=== PATIENT | female | born 2000 | race Caucasian/White ===

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

== ENCOUNTER 2018-01-07 07:08 | Inpatient (IN) | payer BC ==
[~2018-01-07] VITALS: Ht 170.2 cm; Wt 81.6 kg
[2018-01-07 07:10] VITALS: BP_SYST 93
[2018-01-07] MEDS ORDERED: NACL 0.9% 1,000 ML IV ONE (07:15)
[2018-01-07] MEDS ORDERED: PANTOPRAZOLE SODIUM 40 MG/VIAL (PROTONIX) IVP ONE (07:15)
[2018-01-07] MEDS ORDERED: ONDANSETRON HCL 4 MG/2 ML VIAL IVP ONE ×2 (07:15→10:00)
[2018-01-07 07:53] LABS: BASOPHILS % (AUTO) 0.4 % (0.0-2.0); EOSINOPHILS % (AUTO) 0.4 % (0.0-4.0); HEMOGLOBIN 12.3 g/dL (12.0-16.0); LYMPHOCYTES # (AUTO) 0.5 K/uL (1.0-5.5); LYMPHOCYTES % (AUTO) 9.5 % (20.5-51.5); MEAN CORPUSCULAR HEMOGLOBIN 31 pg (27-31); MEAN CORPUSCULAR HGB CONC 34 % (32-36); MEAN CORPUSCULAR VOLUME 90 fL (79.0-98.0); MONOCYTES # (AUTO) 0.4 K/uL (0.0-1.0); MONOCYTES % (AUTO) 6.3 % (1.7-9.3); NEUTROPHILS # (AUTO) 4.8 K/uL (1.8-7.7); NEUTROPHILS % (AUTO) 83.4 % (40.0-70.0); PLATELET COUNT (AUTO) 136 K/uL (130-430); RED BLOOD CELL COUNT(AUTO) 4.02 MIL/uL (4.2-6.2); RED CELL DISTRIBUTION WIDTH 11.2 % (9.0-15.0); WHITE BLOOD COUNT (AUTO) 5.7 K/uL (4.5-11.0)
[2018-01-07 08:06] LABS: CALCIUM 8.3 mg/dL (8.4-11.0); CREATININE 0.39 mg/dL (0.55-1.30); POTASSIUM 3.1 mmol/L (3.5-5.1)
[2018-01-07 08:31] LABS: ALBUMIN 2.5 g/dL (3.4-4.8); TOTAL BILIRUBIN 0.5 mg/dL (0.0-1.0)
[2018-01-07 09:40] LABS: BILIRUBIN,URINE NEGATIVE (NEGATIVE); BLOOD, URINE NEGATIVE (NEGATIVE); CLARITY/URINE CLEAR (CLEAR); COLOR,URINE YELLOW (YELLOW); GLUCOSE,URINE NEGATIVE (NEGATIVE); KETONES,URINE TRACE (NEGATIVE); LEUKOCYTE ESTERASE ,URINE NEGATIVE (NEGATIVE); NITRITE, URINE NEGATIVE (NEGATIVE); PROTEIN URINE NEGATIVE (NEGATIVE); UROBILINOGEN,URINE 0.2 (0.2-1.0)
[2018-01-07] MEDS ORDERED: PREN-89 PO (09:45)
[2018-01-07] MEDS ORDERED: LEVO50TA77 PO (09:45)
[2018-01-07] MEDS ORDERED: MAGN400T10 PO (09:45)
[2018-01-07] MEDS ORDERED: L.RH1CAP PO (09:45)
[2018-01-07] MEDS ORDERED: PYRI100T2 PO (09:45)
[2018-01-07] MEDS ORDERED: cefTRIAXone 1 GM IVPB PREMIX 50 ML IV ONE (10:00)
[2018-01-07] MEDS ORDERED: MAG-AL HYDROX/SIMETH 30 ML UDC PO ONE (10:00)
[2018-01-07] MEDS ORDERED: ONDANSETRON 4 MG ODT TAB PO ONE (15:00)
[2018-01-07] MEDS: D5/0.45 NS 1,000 ML IV SCH (15:50)
[2018-01-07 16:00] VITALS: BP_SYST 126
[2018-01-07] MEDS: BETAMET ACET/BETAMET NA PH 30 MG/5 ML VIAL IM SCH (16:00)
[2018-01-07] MEDS: SUCRALFATE 1 GM/10 ML UDC GT SCH (20:00)
[2018-01-07] MEDS: ONDANSETRON HCL 4 MG/2 ML VIAL IM PRN (21:21)
[2018-01-08] MEDS: SUCRALFATE 1 GM/10 ML UDC GT SCH ×4 (02:00→20:52)
[2018-01-08] MEDS: ONDANSETRON HCL 4 MG/2 ML VIAL IM PRN ×4 (03:12→23:03)
[2018-01-08] MEDS: cefTRIAXone 1 GM in D5W 50 ML IV SCH (10:03)
[2018-01-09] MEDS: ONDANSETRON HCL 4 MG/2 ML VIAL IM PRN (05:43)
[2018-01-09] MEDS: SUCRALFATE 1 GM/10 ML UDC GT SCH ×4 (07:05→19:58)
[2018-01-09] MEDS: D5/0.45 NS 1,000 ML IV SCH ×2 (07:06→19:59)
[2018-01-09 07:39] LABS: ALBUMIN 2.3 g/dL (3.4-4.8); C-REACTIVE PROTEIN QUANT 0.3 mg/dL (0-0.5); CALCIUM 8.4 mg/dL (8.4-11.0); CREATININE 0.4 mg/dL (0.55-1.30); POTASSIUM 3.1 mmol/L (3.5-5.1); TOTAL BILIRUBIN 0.6 mg/dL (0.0-1.0)
[2018-01-09 07:52] LABS: BASOPHILS % (AUTO) 0.6 % (0.0-2.0); EOSINOPHILS # (AUTO) 0.2 K/uL (0.0-0.4); HEMATOCRIT 34.4 % (36-48); HEMOGLOBIN 11.8 g/dL (12.0-16.0); LYMPHOCYTES # (AUTO) 1.2 K/uL (1.0-5.5); LYMPHOCYTES % (AUTO) 24.5 % (20.5-51.5); MEAN CORPUSCULAR HEMOGLOBIN 31 pg (27-31); MEAN CORPUSCULAR HGB CONC 34 % (32-36); MEAN CORPUSCULAR VOLUME 91 fL (79.0-98.0); MONOCYTES # (AUTO) 0.6 K/uL (0.0-1.0); MONOCYTES % (AUTO) 11.6 % (1.7-9.3); NEUTROPHILS # (AUTO) 3.1 K/uL (1.8-7.7); PLATELET COUNT (AUTO) 177 K/uL (130-430); RED BLOOD CELL COUNT(AUTO) 3.78 MIL/uL (4.2-6.2); RED CELL DISTRIBUTION WIDTH 11.4 % (9.0-15.0); WHITE BLOOD COUNT (AUTO) 5.1 K/uL (4.5-11.0)
[2018-01-09 09:41] LABS: NEUTROPHILS % (AUTO) 60.3 % (40.0-70.0)
[2018-01-09] MEDS: cefTRIAXone 1 GM in D5W 50 ML IV SCH (10:42)
[2018-01-09] MEDS: ONDANSETRON HCL 4 MG/2 ML VIAL IVP PRN ×2 (12:10→18:02)
[2018-01-09] MEDS ORDERED: DIPHENHYDRAMINE HCL 25 MG CAPSULE PO PRN (19:00)
[2018-01-09] MEDS ORDERED: PANTOPRAZOLE SODIUM 40 MG TAB PO SCH (21:00)
[2018-01-09] MEDS ORDERED: PANTOPRAZOLE SODIUM 40 MG TAB ONE (22:34)
[2018-01-09] MEDS ORDERED: CHOLESTYRAMINE/SUCROSE 4 GM/PACKET ONE (22:35)
[2018-01-09] MEDS: CHOLESTYRAMINE/SUCROSE 4 GM/PACKET PO SCH (22:36)
[2018-01-10] MEDS: ONDANSETRON HCL 4 MG/2 ML VIAL IVP PRN ×4 (00:48→23:28)
[2018-01-10] MEDS: SUCRALFATE 1 GM/10 ML UDC GT SCH ×4 (07:02→21:34)
[2018-01-10] MEDS: D5/0.45 NS 1,000 ML IV SCH (07:03)
[2018-01-10] MEDS: CHOLESTYRAMINE/SUCROSE 4 GM/PACKET PO SCH (21:34)
[2018-01-11] MEDS: D5/0.45 NS 1,000 ML IV SCH ×2 (00:27→20:14)
[2018-01-11] MEDS: SUCRALFATE 1 GM/10 ML UDC GT SCH ×4 (05:07→21:15)
[2018-01-11] MEDS: ONDANSETRON HCL 4 MG/2 ML VIAL IVP PRN (05:07)
[2018-01-11] MEDS ORDERED: LEVOTHYROXINE 0.05 MG TAB PO SCH (07:00)
[2018-01-11] MEDS ORDERED: LEVOTHYROXINE SODIUM 0.05 MG TABLET PO SCH (07:00)
[2018-01-11 07:27] LABS: BASOPHILS % (AUTO) 0.5 % (0.0-2.0); EOSINOPHILS # (AUTO) 0.1 K/uL (0.0-0.4); EOSINOPHILS % (AUTO) 1.9 % (0.0-4.0); HEMATOCRIT 33.1 % (36-48); HEMOGLOBIN 11.5 g/dL (12.0-16.0); LYMPHOCYTES # (AUTO) 1.5 K/uL (1.0-5.5); LYMPHOCYTES % (AUTO) 26.5 % (20.5-51.5); MEAN CORPUSCULAR HEMOGLOBIN 32 pg (27-31); MEAN CORPUSCULAR HGB CONC 35 % (32-36); MEAN CORPUSCULAR VOLUME 91 fL (79.0-98.0); MONOCYTES # (AUTO) 0.5 K/uL (0.0-1.0); MONOCYTES % (AUTO) 9.4 % (1.7-9.3); NEUTROPHILS # (AUTO) 3.4 K/uL (1.8-7.7); NEUTROPHILS % (AUTO) 61.7 % (40.0-70.0); PLATELET COUNT (AUTO) 138 K/uL (130-430); RED BLOOD CELL COUNT(AUTO) 3.66 MIL/uL (4.2-6.2); RED CELL DISTRIBUTION WIDTH 11.1 % (9.0-15.0); WHITE BLOOD COUNT (AUTO) 5.5 K/uL (4.5-11.0)
[2018-01-11 08:32] LABS: ALBUMIN 2.5 g/dL (3.4-4.8); CALCIUM 8.4 mg/dL (8.4-11.0); CREATININE 0.34 mg/dL (0.55-1.30); POTASSIUM 3.5 mmol/L (3.5-5.1); TOTAL BILIRUBIN 0.5 mg/dL (0.0-1.0)
[2018-01-11] MEDS ORDERED: ONDANSETRON 4 MG ODT TAB PO PRN (11:00)
[2018-01-11] MEDS ORDERED: ONDANSETRON HCL 4 MG/2 ML VIAL IVP PRN (11:30)
[2018-01-11] MEDS ORDERED: ONDANSETRON HCL 4 MG/2 ML VIAL ONE (11:40)
[2018-01-11] MEDS ORDERED: PROCHLORPERAZINE MALEATE 25 MG/SUPP.RECT EA RC PRN (16:00)
[2018-01-11] MEDS: ONDANSETRON 4 MG ODT TAB PO PRN ×2 (17:29→23:32)
[2018-01-11] MEDS: CHOLESTYRAMINE/SUCROSE 4 GM/PACKET PO SCH (21:15)
[2018-01-12] MEDS: ONDANSETRON 4 MG ODT TAB PO PRN (05:13)
[2018-01-12] MEDS: SUCRALFATE 1 GM/10 ML UDC GT SCH ×4 (05:14→21:00)
[2018-01-12] MEDS: D5/0.45 NS 1,000 ML IV SCH (16:42)
[2018-01-12] MEDS: BETAMET ACET/BETAMET NA PH 30 MG/5 ML VIAL IM SCH (19:49)
[2018-01-12] MEDS: CHOLESTYRAMINE/SUCROSE 4 GM/PACKET PO SCH (21:31)
[2018-01-13] MEDS: SUCRALFATE 1 GM/10 ML UDC GT SCH ×2 (07:00→11:00)
[2018-01-13] MEDS: D5/0.45 NS 1,000 ML IV SCH ×2 (08:00→12:24)
[2018-01-13] MEDS: CHOLESTYRAMINE/SUCROSE 4 GM/PACKET PO SCH (09:06)
== END 2018-01-13 14:00 | disposition home or self-care (01) | DRG 781 ==
LOC: EDSTATUS 07:08 → SED 07:08 → UNDOADMIN 15:47 → SMU 15:47 → SPU 16:00 → SMU 16:05 → SPU 01-08 15:35
PROVIDERS: ADMIT Specialist; ATTEND Specialist
DX: O99.613 Diseases of the digestive system complicating pregnancy, third trimester (principal); K31.84 Gastroparesis; O99.113 Other diseases of the blood and blood-forming organs and certain disorders involving the immune mechanism complicating pregnancy, third trimester; O99.283 Endocrine, nutritional and metabolic diseases complicating pregnancy, third trimester; D72.825 Bandemia; R53.82 Chronic fatigue, unspecified; K21.9 Gastro-esophageal reflux disease without esophagitis; K27.9 Peptic ulcer, site unspecified, unspecified as acute or chronic, without hemorrhage or perforation; E03.9 Hypothyroidism, unspecified; Z88.8 Allergy status to other drugs, medicaments and biological substances; Z79.899 Other long term (current) drug therapy; Z88.1 Allergy status to other antibiotic agents; Z90.49 Acquired absence of other specified parts of digestive tract; Z91.018 Allergy to other foods; Z86.73 Personal history of transient ischemic attack (TIA), and cerebral infarction without residual deficits; Z3A.31 31 weeks gestation of pregnancy; Z86.19 Personal history of other infectious and parasitic diseases
CPT/HCPCS: 36415; 59025; 76700-TC; 76805-TC; 80053; 81003; 82150-TC; 83605; 83690-TC; 84484; 84702-TC; 85025; 85379; 85651-TC; 86140; 86901; 87040-TC; 87081; 93005; 96365; 96375; 96376; 99285; C9113; J0696; J0702; J2405; J7030; J7060; Q0162

== ENCOUNTER 2018-01-29 20:00 | Observation (INO) | payer BC ==
[~2018-01-29] VITALS: Ht 172.7 cm; Wt 82.1 kg
[~2018-01-29 20:00] MED LIST: L.RH1CAP PO; LEVO50TA77 PO; MAGN400T10 PO; PREN-89 PO; PYRI100T2 PO
== END 2018-01-29 20:53 | disposition home or self-care (01) ==
LOC: SPU 20:00
PROVIDERS: ADMIT Specialist; ATTEND Specialist
DX: O36.8130 Decreased fetal movements, third trimester, not applicable or unspecified (principal); Z3A.34 34 weeks gestation of pregnancy
CPT/HCPCS: G0378

== ENCOUNTER 2018-02-10 11:10 | Observation (INO) | payer BC ==
[~2018-02-10] VITALS: Ht 172.7 cm; Wt 81.6 kg
[2018-02-10] MEDS ORDERED: TERBUTALINE SULFATE 2.5 MG TABLET PO PRN (12:00)
== END 2018-02-10 12:50 | disposition home or self-care (01) ==
LOC: SPU 11:10
PROVIDERS: ADMIT Specialist; ATTEND Specialist
DX: O36.8130 Decreased fetal movements, third trimester, not applicable or unspecified (principal); Z3A.36 36 weeks gestation of pregnancy
CPT/HCPCS: 81002; G0378

== ENCOUNTER 2018-02-20 13:07 | Emergency (ER) | payer OTHER, BC ==
[~2018-02-20] VITALS: Ht 172.7 cm; Wt 80.3 kg
[2018-02-20 13:19] VITALS: BP_SYST 121
[2018-02-20] MEDS ORDERED: ONDANSETRON 4 MG ODT TAB PO ONE (13:45)
[2018-02-20] MEDS ORDERED: ACETAMINOPHEN 500 MG TABLET PO ONE (13:45)
[2018-02-20 14:18] VITALS: BP_SYST 126
== END 2018-02-20 14:17 | disposition home or self-care (01) ==
LOC: SED 13:07
DX: R51 Headache (principal); R11.0 Nausea; Z90.49 Acquired absence of other specified parts of digestive tract; Z88.1 Allergy status to other antibiotic agents; Z91.018 Allergy to other foods; Z88.8 Allergy status to other drugs, medicaments and biological substances
CPT/HCPCS: 99283

== ENCOUNTER 2018-10-16 11:36 | Emergency (ER) | payer BC, MEDICAID ==
[~2018-10-16] VITALS: Ht 172.7 cm; Wt 69.9 kg
[~2018-10-16 11:36] MED LIST changes: -LEVO50TA77 PO; +SYN50 PO
[2018-10-16 11:42] VITALS: BP_SYST 120
[2018-10-16 13:39] LABS: BASOPHILS # (AUTO) 0.1 K/uL (0.0-0.2); EOSINOPHILS # (AUTO) 0.1 K/uL (0.0-0.4); MONOCYTES # (AUTO) 0.6 K/uL (0.0-1.0)
[2018-10-16 13:55] LABS: BASOPHILS % (AUTO) 1.9 % (0.0-2.0); HEMATOCRIT 39.6 % (36-48); HEMOGLOBIN 12.9 g/dL (12.0-16.0); LYMPHOCYTES # (AUTO) 1.4 K/uL (1.0-5.5); LYMPHOCYTES % (AUTO) 21.8 % (20.5-51.5); MEAN CORPUSCULAR HEMOGLOBIN 28 pg (27-31); MEAN CORPUSCULAR HGB CONC 33 % (32-36); MEAN CORPUSCULAR VOLUME 85 fL (79.0-98.0); MONOCYTES % (AUTO) 9.6 % (1.7-9.3); NEUTROPHILS % (AUTO) 65.7 % (40.0-70.0); PLATELET COUNT (AUTO) 173 K/uL (130-430); RED BLOOD CELL COUNT(AUTO) 4.64 MIL/uL (4.2-6.2); RED CELL DISTRIBUTION WIDTH 12.9 % (9.0-15.0); WHITE BLOOD COUNT (AUTO) 6.2 K/uL (4.5-11.0)
[2018-10-16 14:22] VITALS: BP_SYST 120
== END 2018-10-16 14:22 | disposition home or self-care (01) ==
LOC: SED 11:36
DX: K59.00 Constipation, unspecified (principal); G43.909 Migraine, unspecified, not intractable, without status migrainosus; Z90.49 Acquired absence of other specified parts of digestive tract; Z88.1 Allergy status to other antibiotic agents; Z91.02 Food additives allergy status; Z88.8 Allergy status to other drugs, medicaments and biological substances; Z79.899 Other long term (current) drug therapy
CPT/HCPCS: 36415; 81025; 85025; 99284